=== PATIENT | male | born 1990 | race Two or more races ===

== ENCOUNTER 2018-01-10 12:02 | Emergency (ER) | payer OTHER ==
[2018-01-10 12:07] VITALS: BP 132/93; PULSE 92; RESP 16; TEMP 98.2
--- NOTE | 2018-01-10 13:30 | ED ---
General Adult HPI - General Chief complaint: Back Pain/Injury Stated complaint: [facility] - back injury Time Seen by Provider: 01/10/18 12:41 Source: patient, RN notes reviewed Mode of arrival: ambulatory Limitations: no limitations - History of Present Illness Initial comments: Patient is a 27-year-old male who presents to the emergency department with complaints of back pain that started 2 days ago after lifting something at work. He reports that he has pain over his middle left back area and above his hips that radiates to his left knee cap and groin area. He also reports that there is some tingling to his left knee cap area. He reports using icy hot patches and he also took some Tylenol yesterday. He has been able to continue working since the injury. Denies any prior history of back injury. Patient denies any recent fever, chills, shortness of breath, chest pain, abdominal pain , nausea or vomiting, numbness, bowel or bladder incontinence, saddle anesthesia , dysuria or hematuria, constipation or diarrhea, headaches or visual changes, or any other complaints. - Related Data Previous Rx's Medication Instructions Recorded Benzonatate [Tessalon Perles] 100 mg PO TID #10 cap 08/17/15 Loratadine [Claritin] 10 mg PO DAILY #30 tab 08/17/15 Cyclobenzaprine [Flexeril] 1 - 2 tab PO TID #20 tablet 01/10/18 RX: Ibuprofen [Motrin] 600 mg PO Q6HR PRN #40 day 01/10/18 Allergies Allergy/AdvReac Type Severity Reaction Status Date / Time Penicillins Allergy Unknown Verified 01/10/18 12:07 Childhood venom-honey bee Allergy Swelling Verified 01/10/18 12:07 [bee venom (honey bee)] Review of Systems ROS Statement: Those systems with pertinent positive or pertinent negative responses have been documented in the HPI. ROS Other: All systems not noted in ROS Statement are negative. Past Medical History Past Medical History: No Reported History History of Any Multi-Drug Resistant Organisms: None Reported Past Surgical History: No Surgical Hx Reported Past Psychological History: No Psychological Hx Reported Smoking Status: Current every day smoker Past Alcohol Use History: None Reported Past Drug Use History: None Reported General Exam - General Exam Comments Initial Comments: General: The patient is awake and alert, in no distress, and does not appear acutely ill. Neck: The neck is supple, there is no tenderness or JVD. Cardiovascular: There is a regular rate and rhythm. No murmur, rub or gallop is appreciated. Cap refill less than 3 seconds bilateral lower extremities. Left foot: DP 2+, PT 2+. Right foot: PT 2+. Respiratory: Lungs are clear to auscultation, respirations are non-labored, breath sounds are equal. No wheezes, stridor, rales, or rhonchi. Musculoskeletal: Full range of motion of upper and lower extremities. Strength 5 /5 bilateral lower extremities. Sensation intact. Patellar reflex 2+ bilaterally. Slight tenderness to palpation over left posterior thoracic area and low back area. No bony spinal tenderness. Walks well. Neurological: A&O x 3. There are no obvious motor or sensory deficits. Coordination appears grossly intact. Speech is normal. Skin: Skin is warm and dry and no rashes or lesions are noted. Psychiatric: Normal mood and affect. Limitations: no limitations Course Vital Signs 01/10/18 12:04 Temperature 98.2 F Pulse Rate 92 Respiratory 16 Rate Blood Pressure 132/93 O2 Sat by Pulse 99 Oximetry Medical Decision Making - Medical Decision Making Patient is a 27-year-old male who presents the emergency department with complaint of back pain with radiation to the left leg for 2 days after lifting something at work. Vital signs are within normal limits. No chest pain, abdominal pain or shortness of breath. No saddle anesthesia, bowel or bladder incontinence. He does not want pain medication at this time. Lumbar x-ray reveals vertebral body heights and disk space heights are within normal limits. Lumbar x-ray also reveals no acute fracture or dislocation in the lumbar spine. Will discharge him with work restrictions (no heavy lifting above 10 pounds) and prescriptions for Flexeril and ibuprofen. Disposition Clinical Impression: Strain of lumbar region Disposition: HOME SELF-CARE Condition: Good Instructions: Acute Low Back Pain (ED) Additional Instructions: Follow up with [facility] regarding work restrictions in 2 days. Follow up with PCP in 2 days. Return to emergency department if symptoms worsen or any other concerns. Prescriptions: Cyclobenzaprine [Flexeril] 1 - 2 tab PO TID #20 tablet RX: Ibuprofen [Motrin] 600 mg PO Q6HR PRN #40 day PRN Reason: Pain Is patient prescribed a controlled substance at d/c from ED?: No Referrals: None,Stated [Primary Care Provider] - 1-2 days Time of Disposition: 14:26
--- NOTE | 2018-01-10 13:40 | XR ---
EXAMINATION TYPE: XR lumbar spine 2 or 3V DATE OF EXAM: 01/10/2018 CLINICAL HISTORY: Low back pain from lifting injury today. TECHNIQUE: Frontal and lateral images of the lumbar spine are obtained. COMPARISON: None FINDINGS: There are 5 lumbar type vertebral bodies identified. The lumbar spine shows satisfactory alignment without evidence of acute fracture or dislocation. Vertebral body heights and disk space he ights are within normal limits. No significant spurring is present. The overlying soft tissue appear s unremarkable. IMPRESSION: No acute fracture or dislocation is seen in the lumbar spine.
== END 2018-01-10 14:25 | disposition home or self-care (01) ==
LOC: EC 12:02
DX: S39.012A Strain of muscle, fascia and tendon of lower back, initial encounter (principal); F17.200 Nicotine dependence, unspecified, uncomplicated; Z88.0 Allergy status to penicillin; Z91.030 Bee allergy status; X50.9XXA Other and unspecified overexertion or strenuous movements or postures, initial encounter; Y92.69 Other specified industrial and construction area as the place of occurrence of the external cause; Y99.0 Civilian activity done for income or pay
CPT/HCPCS: 72100; 99283

== ENCOUNTER 2022-01-16 00:47 | Emergency (ER) | payer OTHER ==
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
[2022-01-16 00:59] VITALS: RESP 18
[2022-01-16 01:14] VITALS: TEMP 98.3
[2022-01-16 01:21] LABS: Basophils % (A) 0 %; Eosinophils # (A) 0.1 k/uL (0-0.7); Eosinophils % (A) 1 %; HCT 39.7 % (39.0-53.0); HGB 13.6 gm/dL (13.0-17.5); Lymphocytes % (A) 31 %; MCH 31.6 pg (25.0-35.0); MCHC 34.3 g/dL (31.0-37.0); MCV 92.3 fL (80.0-100.0); Mean Platelet Volume 8.4; Monocytes # (A) 0.3 k/uL (0-1.0); Monocytes % (A) 4 %; Neutrophils # (A) 3.9 k/uL (1.3-7.7); Neutrophils % (A) 61 %; Platelet Count 211 k/uL (150-450); RDW 12.3 % (11.5-15.5); WBC 6.3 k/uL (3.8-10.6)
[2022-01-16 01:33] LABS: Sodium 138 mmol/L (137-145)
[2022-01-16 01:35] LABS: ALT 25 U/L (4-49); AST 25 U/L (17-59); African American GFR (CKD) >90 (>60 ml/min/1.73 sqM); Albumin 4.3 g/dL (3.5-5.0); Alcohol <10 mg/dL; Alkaline Phosphatase 91 U/L (38-126); Anion Gap 16 mmol/L; Blood Urea Nitrogen 20 mg/dL (9-20); Calcium 9.2 mg/dL (8.4-10.2); Carbon Dioxide 19 mmol/L (22-30); Chloride 103 mmol/L (98-107); Glucose 116 mg/dL (74-99); Non-African American GFR(CKD) 81 (>60 ml/min/1.73 sqM); Potassium 3.9 mmol/L (3.5-5.1); Total Bilirubin 0.2 mg/dL (0.2-1.3); Total Protein 6.5 g/dL (6.3-8.2)
[2022-01-16 01:39] LABS: INR 0.9 (<1.2); Partial Thromboplastin Time 21.7 sec (22.0-30.0); Prothrombin Time 10.1 sec (9.0-12.0)
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
[2022-01-16 02:01] LABS: Amphetamine Screen,Urine Detected (NotDetected); Barbiturate Screen,Urine Not Detected (NotDetected); Benzodiazepines Screen,Urine Not Detected (NotDetected); Cocaine Screen,Urine Not Detected (NotDetected); Methadone Screen, Urine Not Detected (NotDetected); Opiate Screen,Urine Not Detected (NotDetected); Oxycodone Screen, Urine Not Detected (NotDetected); Phencyclidine Screen,Urine Not Detected (NotDetected); Tricyclic Antidepressant,Urine Not Detected (NotDetected); Urn Cannabinoid Scrn Detected (NotDetected)
[2022-01-16] MEDS ORDERED: DIPH,PERTUS(ACELL)TETVAC-LF 0.5 ML VIAL IM ONE (02:20)
[2022-01-16 03:03] VITALS: BP 123/74; PULSE 87
== END 2022-01-16 03:03 | disposition home or self-care (01) ==
LOC: EC 00:47
DX: S01.01XA Laceration without foreign body of scalp, initial encounter (principal); Z23 Encounter for immunization; X99.1XXA Assault by knife, initial encounter
CPT/HCPCS: 90471 ×2; 99285 ×2; 12001 ×2; 36415; 93005; 86900; 86901; 80053; 84484; 85025; 85610; 85730; 86850; 80306; 72170; 71045; 70450; 90715; G0480; 80320